=== PATIENT | male | born 1990 | race Two or more races ===

== ENCOUNTER 2020-04-20 12:50 | Outpatient (REF) | payer OTHER, SELFPAY | END 2020-04-20 12:51 | disposition home or self-care (01) | LOC: HO.LAB 12:50 | PROVIDERS: PCP Internal Medicine; Visit Provider Internal Medicine | DX: Z20.828 Contact with and (suspected) exposure to other viral communicable diseases (principal) | CPT/HCPCS: C9803; U0003 ==

== ENCOUNTER 2021-01-23 11:23 | Emergency (ER) | payer OTHER, SELFPAY ==
[2021-01-23 11:46] VITALS: BP 139/79; PULSE 97; RESP 16; TEMP 37.4; O2SAT 99; BMI 32.5
--- NOTE | 2021-01-23 11:50 | ED.URI ---
HPI - URI/Sore Throat General Chief Complaint: Upper Respiratory Symptoms Stated Complaint: sore throat Time Seen by Provider: 01/23/21 11:44 Source: patient Mode of arrival: ambulatory Limitations: no limitations History of Present Illness MD elicited complaint: fever and sore throat Onset (ago): day(s) (Four days) Consistency: constant and progressively worsening Severity: moderate Able to tolerate fluids by mouth: Yes Exacerbating factors: swallowing Relieving factors: nothing Context: other (Patient denies recent travel or sick contacts) Associated symptoms: fever, chills, myalgias and cough Treatments prior to arrival: none Related Data Previous Rx's Medication Instructions Recorded acetaminophen 300 mg-codeine 30 mg 1 tab PO Q8H PRN #10 tab 01/23/21 tablet amoxicillin 875 mg-potassium 1 tab PO BID 10 Days #20 tab 01/23/21 clavulanate 125 mg tablet (Augmentin) dexamethasone 6 mg tablet 12 mg PO ONCE 1 Days #2 tab 01/23/21 (Decadron) ibuprofen 800 mg tablet 800 mg PO Q8H PRN #14 tab 01/23/21 Allergies Allergy/AdvReac Type Severity Reaction Status Date / Time ketorolac [From TORADOL] Allergy Unknown COULDN'T Unverified 02/27/20 16:17 BREATH aspirin [ASA] Allergy Swelling Verified 01/23/21 11:46 reaction to Tramadol Allergy Unknown Difficulty Uncoded 01/23/21 11:46 Breathing Review of Systems Review of Systems: Constitutional : + Fever, + Chills, + fatigue, + Malaise ENT/Mouth : + sore throat, No runny nose Eyes: No Discharge Cardiovascular : No Chest Pain, No SOB Respiratory : + Cough, No Sputum, No Wheezing, No Smoke Exposure, No Dyspnea Gastrointestinal : No Nausea, No Vomiting, No Diarrhea Genitourinary : No irregular bleeding, No Dysuria, No Urinary Frequency, No Hematuria, No Urinary Incontinence, No Urgency, No Flank Pain, Musculoskeletal : No Myalgia Skin : No rash Neuro : No Headache Yes all other systems are reviewed and are negative PMFSH Past Medical History Attestation statement: The following information was validated with the patient. Medical History No known health problems Social History Social History Advance Directives: No Advance Directives Information Provided: Yes Physical Exam Vital Signs: Vital Signs: vital signs have been reviewed as normal and appeared to be correct. Blood pressure normal. Heart rate normal. Respiration rate normal. Temperature normal. Oxygen saturation normal. Appearance: Alert. Oriented X3. No acute distress. Head: Normal external exam. Normocephalic. Atraumatic. Eyes: PERRLA. EOMI. Conjunctiva and sclera normal. Eyelids normal. ENT: EAC normal. TM's Normal. Posterior pharynx erythematous with moderate exudate scattered bilaterally. Uvula midline. Moist mucous membranes. No trismus noted. No drooling noted. No muffled voice noted. Not consistent with peritonsillar abscess/dental abscess/pharyngeal abscess. Neck: Normal inspection. Neck supple. FROM. Bilateral cervical lymphadenopathy noted. Thyroid Normal. No meningeal signs. No neck mass noted. CVS: Normal heart rate and rhythm. Heart sound normal. Pulses normal throughout. No murmurs/rales/gallops. Respiratory: No respiratory distress. Painless inspiration. Breath sounds normal. No wheezes/rales/rhonchi noted. Chest nontender. No accessory muscle usage noted or decreased air movement noted. Abdomen: Soft and nontender. Bowel sounds normal in all 4 quadrants. No distention noted. No organomegaly noted. No visible injury noted. Back: Full range of motion noted. No rashes/lesion/induration/fluctuance or signs of infection noted. Skin: Skin warm and dry. Normal skin color. Normal skin turgor. No rashes/lesions/lacerations noted. Extremities: Extremities exhibit normal range of motion. Extremities nontender. Neuro: Oriented X 3. No motor deficit. No sensory deficit. Reflexes normal. Normal steady gait. No focal neuro deficits noted. Course Course Course Narrative: 30-year-old male presenting to the ED with a sore throat for 4 days. Denies recent travel or sick contacts. On exam patient appears to have pharyngitis. Will DC home antibiotics and symptomatic treatment instructions return if any new or worsening symptoms. Patient reports he was tested for COVID yesterday and does not need to be tested again today he was negative yesterday. Along instructions return if any new or worsening symptoms to follow up with primary care provider. Patient understands with this plan. MDM - URI/Sore Throat Medical Records Attestation: I reviewed the patient's medical records. Lab Data Attestation: I reviewed the patient's lab results. Discharge Plan Discharge Clinical Impression: Acute bacterial pharyngitis Patient Disposition: Home, Self-Care Instructions: Pharyngitis (ED) Prescriptions: New ibuprofen 800 mg tablet 800 mg PO Q8H PRN (Reason: pain) Qty: 14 RF: 0 acetaminophen-codeine 300-30 mg tablet 1 tab PO Q8H PRN (Reason: pain) Qty: 10 RF: 0 amoxicillin-pot clavulanate [Augmentin] 875-125 mg tablet 1 tab PO BID 10 Days Qty: 20 RF: 0 dexamethasone [Decadron] 6 mg tablet 12 mg PO ONCE 1 Days Qty: 2 RF: 0 Referrals: Delgado Mitchell MD [Primary Care Provider] - 2 days Stand Alone Forms: Work/School Release Print Language: Maltese
[2021-01-23 12:05] LABS: Strep A Nucleic Acid Negative (Negative)
== END 2021-01-23 12:03 | disposition home or self-care (01) ==
PROVIDERS: Physician Assistant Medical; Emergency Provider Emergency Medicine; PCP Internal Medicine
DX: J02.9 Acute pharyngitis, unspecified (principal); R50.9 Fever, unspecified; R59.1 Generalized enlarged lymph nodes
CPT/HCPCS: 36415; 87651; 99283

== ENCOUNTER 2021-10-25 10:39 | Outpatient (REF) | payer OTHER, SELFPAY ==
[2021-10-25 11:00] LABS: MANUAL DIFF FLAG NO
[2021-10-25 11:07] LABS: Basophils Percent Auto 0.3 % (0-2); Hematocrit 45.3 % (42.0-52.0); Hemoglobin 14.6 g/dl (14.0-18.0); Imm Gran Abs Auto 0.01 X10*3/uL (0.00-0.03); Imm Gran Pct Auto 0.3 % (0.0-0.4); Lymphocytes Absolute Auto 1.5 X10*3/uL (1.2-4.9); Lymphocytes Percent Auto 39.4 % (20-40); Mean Corpuscular HGB Conc 32.2 g/dl (31.0-36.0); Mean Corpuscular Hemoglobin 27.9 pg (27.0-33.0); Mean Corpuscular Volume 86.5 fL (80.0-98.0); Mean Platelet Volume 11.3 fL (9.4-12.4); Monocytes Absolute Auto 0.5 X10*3/uL (0.1-1.2); Monocytes Percent Auto 12.3 % (2-11); Neutrophils Absolute Auto 1.8 x10*3/uL (2.0-8.3); Neutrophils Percent Auto 46.7 % (45-73); Platelet Count 177 X10*3/uL (160-400); Red Blood Count 5.24 X10*6/uL (4.60-5.80); Red Cell Distribution Width 13.1 % (11.0-16.0); White Blood Count 3.8 X10*3/uL (4.8-10.8)
[2021-10-25 11:39] LABS: Alanine Aminotransferase 22 U/L (0-40); Albumin Level 4.6 g/dL (3.5-5.0); Alkaline Phosphatase 62 U/L (39-117); Anion Gap 12 (12-20); Aspartate Amino Transferase 17 U/L (5-37); Bilirubin Total 0.7 mg/dL (0.0-1.0); Blood Urea Nitrogen 14 mg/dL (9-16); C Reactive Protein 0.13 mg/dL (< or = 0.50); Calcium 10.1 mg/dL (8.4-10.2); Carbon Dioxide 28 mmol/L (22-29); Chloride 103 mmol/L (96-108); Cholesterol 215 mg/dL; Estimated Glomerular Filt Rate > 60; Glucose Random 97 mg/dL (60-115); Potassium 4.5 mmol/L (3.3-5.1); Sodium 138 mmol/L (135-145); Total Protein 8.1 g/dL (6.5-8.0)
[2021-10-25 11:54] LABS: Free T4 (Free Thyroxine) 1.01 ng/dL (0.71-1.85); Thyroid Stimulating Hormone 0.85 uIU/mL (0.32-4.0)
[2021-10-25 12:02] LABS: Vitamin B12 410 pg/mL (200-900)
[2021-10-28 08:55] LABS: TS Negative Control Passed; TS Panel A 0; TS Panel B 0; TS Positive Control Passed; TSpotTB Negative (Negative)
[2021-10-29 20:07] LABS: Testosterone, Free 142.5 pg/mL (35.0-155.0); Testosterone, Total 742 ng/dL (250-1100)
== END 2021-10-25 10:40 | disposition home or self-care (01) ==
LOC: HO.LAB 10:39
PROVIDERS: PCP Internal Medicine; Visit Provider Internal Medicine
DX: Z11.1 Encounter for screening for respiratory tuberculosis (principal); R51.9 Headache, unspecified; R63.5 Abnormal weight gain; G62.9 Polyneuropathy, unspecified; R61 Generalized hyperhidrosis
CPT/HCPCS: 36415; 80053; 82465; 82607; 84402; 84403; 84439; 84443; 85025; 86140; 86481

== ENCOUNTER 2021-10-28 10:43 | Outpatient (REF) | payer OTHER, SELFPAY ==
--- NOTE | ~2021-10-28 | CT_ITS ---
EXAMINATION: CT HEAD WITHOUT CONTRAST CLINICAL INFORMATION: Headache COMPARISON: None TECHNIQUE: Contiguous axial imaging was performed from the skull base to vertex without intravenous administration of contrast. This CT examination was performed using dose optimization techniques as appropriate, variously including the following: *Automated exposure control *Adjustment of mA and/or kV according to patient size (this includes techniques or standardized protocols for targeted exams where dose is matched to indication/reason for exam; i.e. extremities or head) *Use of iterative reconstruction technique DLP: 769 mGy-cm FINDINGS: There is no evidence of acute intracranial hemorrhage or territorial infarction. No abnormal mass effect or midline shift is seen. Ward to white matter differentiation is well preserved. No extra-axial fluid collections are identified. The ventricles are normal in size. There is no abnormal attenuation within the brain parenchyma. The osseous structures and soft tissues are normal. The mastoid air cells and visualized portions of the paranasal sinuses are well aerated. CT/CT head/brain wo con IMPRESSION: No acute intracranial process seen.
== END 2021-10-28 10:44 | disposition home or self-care (01) ==
LOC: HO.CT 10:43
PROVIDERS: PCP Internal Medicine; Visit Provider Internal Medicine
DX: R51.9 Headache, unspecified (principal); L74.9 Eccrine sweat disorder, unspecified; G60.9 Hereditary and idiopathic neuropathy, unspecified
CPT/HCPCS: 70450

== ENCOUNTER 2022-02-05 16:48 | Emergency (ER) | payer OTHER, SELFPAY ==
--- NOTE | ~2022-02-05 | XR_ITS ---
EXAMINATION: XR chest 2V CLINICAL INFORMATION: Reason for Exam sob, cough, positive COVID COMPARISON: No prior chest x-ray available in our system for comparison at the time of this dictation. TECHNIQUE: XR chest 2V Lungs and Mary: Both lungs are clear. Pleura: Normal. Costophrenic angles are sharp. No pneumothorax. Heart: The heart is normal in size. Mediastinum: The mediastinum is within normal limits.. Bones: Skeletal structures included are normal for patient's age. XR/XR chest 2V IMPRESSION: Normal chest x-ray.
[2022-02-05 17:11] VITALS: BP 142/90; PULSE 98; RESP 20; TEMP 37; O2SAT 99; BMI 32.5
[2022-02-05 17:38] LABS: COVID-19 Test Positive (Negative)
--- NOTE | 2022-02-05 18:27 | ED.URI ---
HPI - URI/Sore Throat General Chief Complaint: Upper Respiratory Symptoms Stated Complaint: SOB/Body aches/ +Covid Time Seen by Provider: 02/05/22 17:37 Source: patient Mode of arrival: ambulatory Limitations: no limitations History of Present Illness HPI Narrative: Patient presents emergency department for evaluation of upper respiratory symptoms. Reporting cough, intermittent shortness of breath, body aches, fevers, vomiting and diarrhea x2 days. Had at home COVID-19 test which was positive. States he has received a single dose of COVID-19 vaccination, does not recall the date. Related Data Previous Rx's Medication Instructions Recorded acetaminophen 300 mg-codeine 30 mg 1 tab PO Q6H PRN pain #10 tabs 01/23/21 tablet acetaminophen 300 mg-codeine 30 mg 1 tab PO Q8H PRN pain #10 tabs 01/23/21 tablet amoxicillin 875 mg-potassium 1 tab PO BID 10 days #20 tabs 01/23/21 clavulanate 125 mg tablet (Augmentin) dexamethasone 6 mg tablet 12 mg PO ONCE Inflammation 1 day 01/23/21 (Decadron) #2 tabs ibuprofen 800 mg tablet 800 mg PO Q8H PRN pain #14 tabs 01/23/21 Allergies Allergy/AdvReac Type Severity Reaction Status Date / Time ketorolac [From TORADOL] Allergy Unknown COULDN'T Verified 02/05/22 17:14 BREATH aspirin [ASA] Allergy Swelling Verified 02/05/22 17:14 reaction to Tramadol Allergy Unknown Difficulty Uncoded 01/23/21 11:46 Breathing Review of Systems Review of Systems: Constitutional: Positive fever. Positive chills. No weakness. Positive fatigue. ENT/ Mouth: No Ear Pain, positive Nasal Congestion, positive sore throat, No Rhinorrhea, No Swallowing Difficulty Skin: No rash or itching. Cardiovascular: No chest pain. No palpitations. Respiratory: Positive shortness of breath. Positive cough. No sputum production. Gastrointestinal: No nausea. No vomiting. No diarrhea. No abdominal pain. Genitourinary: No burning micturition. No urinary frequency. Neurologic: No headache. No dizziness. No syncope. No numbness or tingling in the extremities. Musculoskeletal: No muscle pain. No back pain. No joint pain or stiffness. Yes all other systems are reviewed and are negative [facility] Past Medical History Attestation statement: The following information was validated with the patient. Source: old records reviewed Medical History No known health problems Social History Social History Advance Directives: No Advance Directives Information Provided: No Physical Exam Vital Signs: Vital Signs: Last Vital Signs Temp 98.6 F 02/05/22 17:11 Pulse 98 02/05/22 17:11 Resp 20 02/05/22 17:11 BP 142/90 H 02/05/22 17:11 Pulse Ox 99 02/05/22 17:11 O2 Del Method 02/05/22 17:11 BMI result Body Mass Index 32.5 Vital signs have been reviewed as normal and appeared to be correct. Blood pressure normal.? Heart rate normal.? Respiration rate normal. Temperature normal.? Oxygen saturation normal. Appearance: Alert.?Oriented to person, place and time. No acute distress.?Normal affect. Eyes: Pupils equal, round and reactive to light.? ENT: TM normal bilaterally. Pharynx normal.?? Neck: Normal inspection.? Neck supple.??No cervical adenopathy CVS: Heart sounds normal. Normal heart rate and rhythm.? Pulses normal.?? Respiratory: No respiratory distress.? Lung sounds clear to auscultation bilaterally?? Abdomen: Soft and non-tender. Normoactive bowel sounds. Skin: Skin warm and dry.? Normal skin color.? ? Extremities: No lower extremity edema.? Neuro: Moves all extremities spontaneously. Sensation intact bilaterally. No motor deficits. Ambulates with normal steady gait. Course Course Course Narrative: Patient is a 31-year-old male with No significant past medical history, presenting for evaluation of upper respiratory symptoms. COVID-19 testing Was positive. At this time history and physical exam not consistent with ACS/PE/pneumonia. Well-appearing, nontoxic, afebrile, no tachycardia or tachypnea/hypoxia. Ambulatory room air trial without hypoxia, tachypnea, or tachycardia Speaking clear full sentences, ambulatory with steady gait. Discussed conservative treatment including rest, hydration, Tylenol/ibuprofen as needed for fever and body aches, saline nasal spray, humidifier, [id number] cold medication. Advised to follow-up with primary care provider as needed, discussed reasons to return back to the emergency department. All questions were answered. Patient discharged home in stable condition. Provided with a return to work/school note. Soonest return date/end isolation date of 02/08/2022, advised that he needs to be without fever for 24 hour period without the use of Tylenol or ibuprofen, and with improvement in his symptoms. No past medical history that would make him a candidate for oral treatment/monoclonal antibodies MDM - URI/Sore Throat Medical Records Attestation: I reviewed the patient's medical records. Lab Data Attestation: I reviewed the patient's lab results. Labs: Lab Results 02/05/22 Range/Units 17:16 COVID-19 (ANDREAS) Positive A (Negative) COVID-19 Clin Com See Note Imaging Data Chest x-ray: Radiologist's impression: XR/XR chest 2V IMPRESSION: Normal chest x-ray. Discharge Plan Discharge Clinical Impression: COVID-19 Patient Disposition: Home, Self-Care Additional Instructions: You tested positive for COVID-19. Per CDC guidelines you should socially distance/isolate yourself for at least 5 days since her symptom onset. This means the Soonest you may return to to work or end isolation Is 02/09/2020. However, in order to return to work or and your social distancing your symptoms need to be improving, and you need to be without a fever for at least 24 hours without the use of Tylenol or ibuprofen. Be sure to rest, stay well hydrated drinking plenty of fluids, eat small frequent meals. Tylenol/ibuprofen can be used as needed for fever/pain. [id number] cold medications may be helpful as well for symptoms. Saline nasal spray, humidifier may be helpful for nasal congestion. You may return to the emergency department with any new or worsening symptoms or concerns, Such as high fevers not responding to Tylenol or ibuprofen, difficulty breathing, chest pain, confusion. Follow-up with your primary care provider as needed. Prescriptions: No Action ibuprofen 800 mg tablet 800 mg PO Q8H PRN (Reason: pain) Qty: 14 0RF acetaminophen-codeine 300-30 mg tablet 1 tab PO Q8H PRN (Reason: pain) Qty: 10 0RF amoxicillin-pot clavulanate [Augmentin] 875-125 mg tablet 1 tab PO BID 10 Days Qty: 20 0RF dexamethasone [Decadron] 6 mg tablet 12 mg PO ONCE 1 Days Qty: 2 0RF Rx Instructions: Take two tablets today does not need to repeat. acetaminophen-codeine 300-30 mg tablet 1 tab PO Q6H PRN (Reason: pain) Qty: 10 0RF Rx Instructions: Narcotic, no driving for 6 hours after taking this medication Referrals: Delgado Mitchell MD [Primary Care Provider] - Stand Alone Forms: Work/School Release
== END 2022-02-05 19:38 | disposition home or self-care (01) ==
PROVIDERS: Emergency Provider Emergency Medicine; PCP Internal Medicine
DX: U07.1 COVID-19 (principal)
CPT/HCPCS: 71046; 87635; 99282; 99283

== ENCOUNTER 2023-02-26 07:35 | Emergency (ER) | payer OTHER, SELFPAY ==
--- NOTE | ~2023-02-26 | XR_ITS ---
EXAMINATION: XR CHEST CLINICAL INFORMATION: Chest pain COMPARISON: X-ray 02/05/2022 TECHNIQUE: 2 views of the chest were obtained. FINDINGS: The cardiomediastinal silhouette is within normal limits. The lungs are well expanded. There is no focal consolidation, edema, or effusion. No pneumothorax. No acute osseous abnormality. XR/XR chest 2V IMPRESSION: No acute pulmonary finding seen.
--- NOTE | 2023-02-26 07:37 | ECG_ITS ---
Test Reason : CP Blood Pressure : / mmHG Vent. Rate : 118 BPM Atrial Rate : 118 BPM P-R Int : 170 ms QRS Dur : 094 ms QT Int : 316 ms P-R-T Axes : 026 002 025 degrees QTc Int : 442 ms Sinus tachycardia Cannot rule out Inferior infarct , age undetermined Abnormal ECG No previous ECGs available Referred By: Enid Ochoa Electronically Signed By:SARAN GRIMM
[2023-02-26 07:41] VITALS: BP 143/85; PULSE 116; RESP 26; TEMP 36.8; O2SAT 98; BMI 30.7
--- NOTE | 2023-02-26 07:53 | ED_ITS ---
HPI - Chest Pain General Chief Complaint: Chest Pain Stated Complaint: heart racing going fast Time Seen by Provider: 02/26/23 07:39 Source: patient Mode of arrival: ambulatory History of Present Illness HPI narrative: 32-year-old male who reports extensive drinking over the weekend and has been having anterior chest wall discomfort, reproducible on palpation, no nausea or vomiting or abdominal pain, no fever but states he has been having chills and denies any cough or sore throat. Patient states that he feels he is having palpitations every time he stands up and walks, he feels better laying back then he does sitting up. Related Data Previous Rx's Medication Instructions Recorded acetaminophen 300 mg-codeine 30 mg 1 tab PO Q6H PRN pain #10 tabs 01/23/21 tablet acetaminophen 300 mg-codeine 30 mg 1 tab PO Q8H PRN pain #10 tabs 01/23/21 tablet amoxicillin 875 mg-potassium 1 tab PO BID 10 days #20 tabs 01/23/21 clavulanate 125 mg tablet (Augmentin) dexamethasone 6 mg tablet 12 mg (2 x 6 mg) PO ONCE 01/23/21 (Decadron) Inflammation 1 day #2 tabs ibuprofen 800 mg tablet 800 mg PO Q8H PRN pain #14 tabs 01/23/21 Allergies Allergy/AdvReac Type Severity Reaction Status Date / Time ketorolac [From TORADOL] Allergy Unknown COULDN'T Verified 02/05/22 17:14 BREATH aspirin [ASA] Allergy Swelling Verified 02/05/22 17:14 reaction to Tramadol Allergy Unknown Difficulty Uncoded 01/23/21 11:46 Breathing Review of Systems 2 Review of Systems: Pertinent positives and negatives as stated in HPI [facility] Past Medical History Source: nursing notes reviewed Medical History No known health problems Social History Social History Smoked in Last 30 Days: No Substance Use Type: Marijuana Advance Directives: No Advance Directives Information Provided: Yes Physical Exam 2 Vital Signs: Vital Signs: Last Vital Signs Temp 98.4 F 02/26/23 11:19 Pulse 101 H 02/26/23 11:19 Resp 18 02/26/23 11:19 BP 139/85 02/26/23 11:19 Pulse Ox 97 02/26/23 11:19 O2 Del Method Room Air 02/26/23 11:19 BMI result Body Mass Index 30.7 VITAL SIGNS: Reviewed. GENERAL: Well developed, well nourished, in no acute distress. HEAD: Normocephalic/atraumatic EYES: PERRLA, EOMI EARS: Ext canals without abnormality, TMs non-bulging and non-erythematous NOSE: Nares patent bilateral OROPHARYNX: no oral lesions noted, posterior pharynx clear and non-erythematous without noted tonsillar enlargement/erythema/exudates NECK: Supple, no adenopathy LUNGS: Normal breath sounds. No adventitious sounds or accessory muscle use. SpO2<98>; CHEST: Reproducible chest pain on palpation across the anterior chest CARDIOVASCULAR: Regular rate and rhythm without noted murmurs, no JVD or lower extremity edema. ABDOMEN: Soft, non-tender, non-distended with bowel sounds. MUSCULOSKELETAL: No tenderness, deformities, or effusions noted on gross inspection. EXTREMITIES: No cyanosis, clubbing or edema. SKIN: Inspection of the skin reveals no rashes NEUROLOGIC: Alert and oriented x 4. Strength and sensation to light touch were grossly intact x 4. Medications Administered Discontinued Medications Generic Name Dose Route Start Last Admin Trade Name Freq PRN Reason Stop Dose Admin Acetaminophen 975 mg 02/26/23 08:47 02/26/23 08:52 Acetaminophen 325 Mg Tablet PO 02/26/23 08:48 975 mg ONCE ONE Administration Hydroxyzine HCl 25 mg 02/26/23 09:58 02/26/23 10:08 Hydroxyzine Hcl 25 Mg Tablet PO 02/26/23 09:59 25 mg ONCE ONE Administration Sodium Chloride 1,000 mls @ 999 mls/hr 02/26/23 09:00 02/26/23 10:09 Ns IV 02/26/23 10:00 Infused .Q1H1M ALEJANDRO Infusion Lidocaine/Diphenhydr/Alum/Mg/Simeth 10 ml 02/26/23 08:47 02/26/23 08:52 Mag&Al/Sim/Diphenhyd/Lidocaine 10 Ml Oral.Susp PO 02/26/23 08:48 10 ml ONCE ONE Administration Protocol Medical Decision Making Medical Decision Making MDM Narrative: 32-year-old male with history and clinical presentation, DDX: Lower clinical suspicion for pericarditis given the lack of positional association, patient is noted to be tachycardic but suspect this may be more secondary to hypovolemia from alcohol intake as opposed to primary ACS but will rule out with troponin and also evaluate with a D-dimer and a two view chest x-ray for lower clinical suspicion of pneumothorax. He is not describing it as burning in nature so lower clinical suspicion for acid reflux. 0800: I discussed the case briefly with Cardiology given that there or questionable ST elevations in lead 2 and AVF, recommendations are to evaluate troponin and if negative repeat the troponin in 3 hours. I will also repeat EKG and of course, allergic to aspirin. I reviewed all investigations, orthostatics are negative, hematologic indices are without leukocytosis or thrombocytopenia. Patient does have a normocytic anemia without complaints or evidence of acute bleeding. D-dimer is undetectable and otherwise coagulation studies are negative. Chemistry indices are grossly within normal limits without ELVIA and no evidence of electrolyte or liver enzyme abnormalities. Initial troponin is undetectable. Troponin will be repeated at 11:00 hours. Patient was provided with Tylenol and GI cocktail. 1 L of IV fluids is being administered. Of note, patient was drinking mixed drinks with red bull last night which is likely a contributing factor for his current symptoms. Chest x-ray without infiltrate and otherwise my interpretation is in agreement with radiology's impression. UDS positive for endorsed use marijuana. Patient did receive hydroxyzine for reported anxiety. Will proceed with 2nd troponin and EKG. 1108: I have updated Dr. Garza who recommends that if 2nd troponin is undetectable, okay to discharge but if elevated at all patient will be admitted. 1102: EKG still demonstrate elevation in Lead II, aVF of unclear significance. 1146: Trop #2 undetetctable and cardiology agrees with discharge and will reach out for appointment. All results and findings discussed with the patient at bedside and discharged with presumptive caffeine overindulgence. Differential Diagnosis Differential Diagnoses: The differential diagnosis associated with the presentation includes Please see the discussion above Admission/Observation Consideration of admission/observation: Escalation of care including admission/observation considered Please see the discussion above Consult Healthcare Provider Management of the patient was discussed with: Electrotype Finisher Please see the discussion above Lab Data MDM Lab Attestation statement: I reviewed the patient's lab results. Please see the discussion above 02/26/23 08:01 02/26/23 08:01 Labs: Lab Results 02/26/23 02/26/23 02/26/23 Range/Units 08:01 10:19 11:15 WBC 10.3 (4.8-10.8) X10*3/uL RBC 4.66 (4.60-5.80) X10*6/uL Hgb 13.0 L (14.0-18.0) g/dl Hct 39.0 L (42.0-52.0) % MCV 83.7 (80.0-98.0) fL MCH 27.9 (27.0-33.0) pg MCHC 33.3 (31.0-36.0) g/dl RDW 12.3 (11.0-16.0) % Plt Count 172 (160-400) X10*3/uL MPV 11.3 (9.4-12.4) fL Immature Gran % (Auto) 0.3 (0.0-0.4) % Neut % (Auto) 80.6 H (45-73) % Lymph % (Auto) 9.3 L (20-40) % Dixon % (Auto) 9.6 (2-11) % Eos % (Auto) 0.1 (0-4) % Baso % (Auto) 0.1 (0-2) % Lymph # (Auto) 1.0 L (1.2-4.9) X10*3/uL Dixon # (Auto) 1.0 (0.1-1.2) X10*3/uL Eos # (Auto) 0.0 (0.0-0.4) X10*3/uL Baso # (Auto) 0.0 (0.0-0.2) X10*3/uL Abs Immat Gran (auto) 0.03 (0.00-0.03) X10*3/uL Absolute Neuts (auto) 8.3 (2.0-8.3) x10*3/uL Absolute Nucleated RBC 0.000 (0.0-0.012) X10*3/uL Nucleated RBC % (auto) 0.0 (0.0-0.2) /100WBC PT 12.0 (11.1-13.3) SEC INR 1.0 (0.9-1.1) D-Dimer High Sensitivty < 150 NG/ML Sodium 137 (135-145) mmol/L Potassium 3.5 D (3.3-5.1) mmol/L Chloride 104 (96-108) mmol/L Carbon Dioxide 24 (22-29) mmol/L Anion Gap 13 (12-20) BUN 10 (9-16) mg/dL Creatinine 1.10 (0.5-1.4) mg/dL Estim Creat Clear Calc 105.0 Estimated GFR > 60 Random Glucose 112 (60-115) mg/dL Calcium 9.4 D (8.4-10.2) mg/dL Total Bilirubin 0.9 (0.0-1.0) mg/dL AST 16 (5-37) U/L ALT 14 (0-40) U/L Alkaline Phosphatase 63 (39-117) U/L Troponin I High Sens < 2.7 < 2.7 (<3.5-35.0) ng/L Total Protein 7.6 (6.5-8.0) g/dL Albumin 4.3 (3.5-5.0) g/dL Lipase 20 (8-78) U/L Urine Opiates Screen Not Detected (Not Detect) Urine Fentanyl Screen Not Detected (Not Detect) Ur Barbiturates Screen Not Detected (Not Detect) Ur Phencyclidine Scrn Not Detected (Not Detect) Ur Amphetamines Screen Not Detected (Not Detect) U Benzodiazepines Scrn Not Detected (Not Detect) Urine Cocaine Screen Not Detected (Not Detect) U Marijuana (THC) Screen POSITIVE H (Not Detect) Independent Interpretation I performed an independent interpretation of an: EKG Interpretation: Sinus tachycardia, HR -118, ?Lead II/aVF elevations, NM/QRS/QTC is within normal limits. no EKG for comparison. Radiology Impression Discussion of test interpretation with radiology: I have reviewed the radiologist's reading. Radiologist Impression: Please see the discussion above External Record Review External record reviewed: Outpatient record, Prior outpatient labs and Prior outpatient radiology Critical Care Time Critical Care Time Critical Care Time: Yes Total Critical Care Time: 30 Attestation: I personally attest to this time spent taking care of the patient. Discharge Plan Discharge Clinical Impression: Accidental caffeine overdose, Atypical chest pain, Anterior chest wall pain, Anxiety Patient Disposition: Home, Self-Care Instructions: Anxiety (ED), Caffeine Use (ED), Chest Wall Pain (ED) Additional Instructions: 1. Resume all home medications as prescribed. 2. Recommend follow-up with your primary care doctor. Return to the ER for any worsening symptoms. Prescriptions: No Action ibuprofen 800 mg tablet 800 mg PO Q8H PRN (Reason: pain) Qty: 14 0RF acetaminophen-codeine 300-30 mg tablet 1 tab PO Q8H PRN (Reason: pain) Qty: 10 0RF amoxicillin-pot clavulanate [Augmentin] 875-125 mg tablet 1 tab PO BID 10 Days Qty: 20 0RF dexamethasone [Decadron] 6 mg tablet 12 mg PO ONCE 1 Days Qty: 2 0RF Rx Instructions: Take two tablets today does not need to repeat. acetaminophen-codeine 300-30 mg tablet 1 tab PO Q6H PRN (Reason: pain) Qty: 10 0RF Rx Instructions: Narcotic, no driving for 6 hours after taking this medication Referrals: Delgado Mitchell MD [Primary Care Provider] - Chester Garza MD [Physician] -
--- NOTE | 2023-02-26 08:03 | PC.NURSE ---
alert and oriented, respirations even and unlabored. IV established, labs drawn and sent. Placed on manager operations, sinus tach. Awaiting xrays
[2023-02-26 08:06] LABS: MANUAL DIFF FLAG NO
[2023-02-26 08:09] LABS: Basophils Percent Auto 0.1 % (0-2); Eosinophils Percent Auto 0.1 % (0-4); Imm Gran Abs Auto 0.03 X10*3/uL (0.00-0.03); Imm Gran Pct Auto 0.3 % (0.0-0.4); Lymphocytes Percent Auto 9.3 % (20-40); Mean Corpuscular HGB Conc 33.3 g/dl (31.0-36.0); Mean Corpuscular Hemoglobin 27.9 pg (27.0-33.0); Mean Corpuscular Volume 83.7 fL (80.0-98.0); Mean Platelet Volume 11.3 fL (9.4-12.4); Monocytes Percent Auto 9.6 % (2-11); Neutrophils Absolute Auto 8.3 x10*3/uL (2.0-8.3); Neutrophils Percent Auto 80.6 % (45-73); Platelet Count 172 X10*3/uL (160-400); Red Blood Count 4.66 X10*6/uL (4.60-5.80); Red Cell Distribution Width 12.3 % (11.0-16.0); White Blood Count 10.3 X10*3/uL (4.8-10.8)
[2023-02-26 08:11] VITALS: BP 139/83; PULSE 108
[2023-02-26 08:13] VITALS: BP 131/84; PULSE 115
[2023-02-26 08:14] VITALS: BP 151/81; PULSE 117
[2023-02-26 08:24] LABS: Alanine Aminotransferase 14 U/L (0-40); Albumin Level 4.3 g/dL (3.5-5.0); Alkaline Phosphatase 63 U/L (39-117); Anion Gap 13 (12-20); Aspartate Amino Transferase 16 U/L (5-37); Bilirubin Total 0.9 mg/dL (0.0-1.0); Blood Urea Nitrogen 10 mg/dL (9-16); Calcium 9.4 mg/dL (8.4-10.2); Carbon Dioxide 24 mmol/L (22-29); Chloride 104 mmol/L (96-108); Estimated Glomerular Filt Rate > 60; Glucose Random 112 mg/dL (60-115); Lipase 20 U/L (8-78); Potassium 3.5 mmol/L (3.3-5.1); Sodium 137 mmol/L (135-145); Total Protein 7.6 g/dL (6.5-8.0)
[2023-02-26 08:33] LABS: Troponin-I High Sensitivity < 2.7 ng/L (<3.5-35.0)
[2023-02-26] MEDS: Mag&Al/Sim/Diphenhyd/Lidocaine 10 ML ORAL.SUSP PO (08:52)
[2023-02-26] MEDS: Acetaminophen 325 MG TABLET 975 MG PO (08:52)
[2023-02-26] MEDS: 0.9 % Sodium Chloride 1,000 ML 999 ML IV (08:52)
[2023-02-26 09:09] LABS: D Dimer High Sensitivity < 150 NG/ML
[2023-02-26] MEDS: hydrOXYzine HCL 25 MG TABLET PO (10:08)
--- NOTE | 2023-02-26 10:10 | PC.NURSE ---
plan for repeat troponin at 1100. pt removed himself from the monitor, stating he is having anxiety at this time. medicated per the MAR for anxiety. ambulating to the bathroom for urine sample. explained that pt needs to be on reed or wind instrument repairer so we can monitor his heart rate
[2023-02-26 10:18] VITALS: PULSE 102; RESP 16; O2SAT 97
[2023-02-26 10:35] LABS: Amphetamine Screen Urine Not Detected (Not Detect); Barbiturates, Urine Not Detected (Not Detect); Benzodiazepines Screen Urine Not Detected (Not Detect); Cannabinoid Screen Urine POSITIVE (Not Detect); Cocaine Screen Urine Not Detected (Not Detect); Fentanyl, urine Not Detected (Not Detect); Opiate Screen Urine Not Detected (Not Detect); Phencyclidine Screen Urine Not Detected (Not Detect)
--- NOTE | 2023-02-26 10:48 | ECG_ITS ---
Test Reason : CHEST PAIN Blood Pressure : / mmHG Vent. Rate : 106 BPM Atrial Rate : 106 BPM P-R Int : 162 ms QRS Dur : 092 ms QT Int : 334 ms P-R-T Axes : 024 001 019 degrees QTc Int : 443 ms Sinus tachycardia with Premature supraventricular complexes Early repolarization Otherwise normal ECG When compared with ECG of 26-FEB-2023 07:46, Premature supraventricular complexes are now Present Minimal criteria for Inferior infarct are no longer Present Referred By: Enid Ochoa Electronically Signed By:SARAN GRIMM
--- NOTE | 2023-02-26 11:18 | PC.NURSE ---
states he is feeling better than he was this morning but still reporting palpitations. repeat troponin obtained.
[2023-02-26 11:19] VITALS: BP 139/85; PULSE 101; RESP 18; TEMP 36.9; O2SAT 97
[2023-02-26 11:40] LABS: Troponin-I High Sensitivity < 2.7 ng/L (<3.5-35.0)
== END 2023-02-26 12:04 | disposition home or self-care (01) ==
PROVIDERS: Emergency Provider Student in an Organized Health Care Education/Training Program; PCP Internal Medicine
DX: T43.611A Poisoning by caffeine, accidental (unintentional), initial encounter (principal); Y92.9 Unspecified place or not applicable; R07.89 Other chest pain; F41.1 Generalized anxiety disorder; F43.0 Acute stress reaction; F12.90 Cannabis use, unspecified, uncomplicated; Z79.899 Other long term (current) drug therapy
CPT/HCPCS: 36415; 71046; 80053; 80307; 83690; 84484; 85025; 85379; 85610; 93005; 99285

== ENCOUNTER 2023-07-19 13:50 | Outpatient (AMB) | payer OTHER, SELFPAY ==
--- NOTE | 2023-07-19 13:52 | A.OFFVIS_ITS ---
Intake Vital Signs 07/19/23 13:54 Height 5 ft 8 in Weight 200 lb 9.93 oz BMI 30.5 BP 120/72 Blood Pressure Location Lt brachial Position Sitting Pulse 97 Intake Visit Reasons: NPV/Croke Intake Note: NPV Psych Tech Required: No Accompanied by: Self / Same As Patient Allergies ketorolac [From TORADOL] Allergy (Unknown, Verified 07/19/23 13:57) COULDN'T BREATH aspirin [ASA] Allergy (Verified 07/19/23 13:57) Swelling reaction to Tramadol Allergy (Unknown, Uncoded 07/19/23 13:57) Difficulty Breathing Medication List - Last Reconciled 07/19/23 by Chester Garza MD bupropion HCl 100 mg PO QAM colchicine 0.6 mg PO BID ibuprofen 400 mg PO Q12H pantoprazole 40 mg PO DAILY HPI HPI Comments History of Present Illness Details Emiliano is here for consultation regarding pericardial effusion. It seems that he has been having symptoms of chest pain going back to almost March or so. Then things got worse and he actually got admitted to [facility] last month. At that time, he had several complaints apparently including pleuritic type chest pains, shortness of breath and also some sensations of racing heart. Then underwent a CT scan and that showed a large pericardial effusion. Also seen on echocardiogram. Subsequently, he went for pericardiocentesis. About 720 mL of serosanguineous fluid was removed. After that, he has been put on a combination of colchicine and ibuprofen. He is better but not back to normal yet. When he was taking colchicine twice a day, he was having diarrhea and hence he is taking once a day. However, he is having more chest pain type symptoms again. Prior to this, no major medical issues and he is generally very healthy. No known malignancy or autoimmune disease. FOR[facility]LY [facility], [facility] Medical History (Updated 07/19/23 @ 14:08 by Chester Garza MD) Pericardial effusion No known health problems Surgical History (Updated 07/19/23 @ 13:59 by Sherley Wilson) No pertinent past surgical history Family History (Updated 07/19/23 @ 14:00 by Sherley Wilson) Mother No problems noted. Father No problems noted. Social History Substance Use Type: Marijuana Review of Systems Const Denies weakness Eyes Denies loss of vision ENT Denies dizziness Card Reports chest pain, Denies chest pain with activity, Denies syncope, Denies rapid heart rate, Denies pedal edema, Denies edema, Denies leg edema, Denies lightheadedness, Reports palpitations, Reports dyspnea, Denies dyspnea on exertion and Denies orthopnea Resp Denies cough, Reports dyspnea, Denies dyspnea on exertion and Denies wheezing GI Denies hematochezia and Denies change in stool character Denies hematuria, Denies dysuria and Denies urinary frequency Musc Denies abnormal gait, Denies muscle cramps, Denies muscle weakness, Denies numbness, Denies radiating pain into limb and Denies tingling Skin/Breast Denies nail changes and Denies rash Neuro Denies Abnormal speech present, Denies abnormal gait, Denies dizziness, Denies syncope, Denies loss of vision, Denies memory loss, Denies numbness, Denies tingling and Denies weakness Psych Denies depression and Denies memory loss Endo Reports palpitations Aller/Immun Denies wheezing Physical Exam Vital Signs: Last Vital Signs Pulse 97 07/19/23 13:54 BP 120/72 07/19/23 13:54 BMI result Body Mass Index 30.5 Const General: comfortable and no acute distress Orientation/consciousness: patient oriented x3 HEENT Other: Unremarkable Head: Yes normal to inspection Neck Neck: Yes normal visual inspection Chest Chest palpation & inspection: normal inspection of the chest Resp Auscultation: clear to auscultation bilaterally Cardio Palpation: normal PMI Heart sounds: S1 normal heart sound present, S2 normal heart sound present, no gallops, no murmurs and no rubs GI Palpation (GI): Soft to palpation Back/Spine/Pelvis Other: unremarkable Skin General skin exam: no rashes or lesions noted Neuro General: patient oriented x3 Speech: No Abnormal speech present Extrem General: Yes normal to inspection Psych Mental Status: mental status grossly normal Assessment & Plan Assessment & Plan (1) Pericardial effusion: Code(s): I31.39 - Other pericardial effusion (noninflammatory) Plan He EKG from February shown sinus tachycardia with mild, diffuse ST elevation suggesting pericarditis pattern. [facility] records were reviewed. CT scan had reported a large, mildly complex pericardial effusion. Echocardiogram then with a large circumferential pericardial effusion but no evidence of tamponade physiology. Pericardial centesis removal of 720 mL of serosanguineous fluid. Etiology is not clear. It seems that his CRP and ESR were high. That is just a nonspecific finding suggesting underlying inflammation. TSH is within normal limits. Viral serologies including COVID and influenza, RSV were negative. Unremarkable troponin. The fluid itself was cloudy and positive for white cells, red blood cells. Negative for malignancy. Negative cultures. Labs did not show any significant findings. Renal function was okay. Liver function was also within normal limits. LDH was high. Overall, pericardial effusion of uncertain etiology. Status post pericardiocentesis. We will repeat another echocardiogram to ensure there are no significant residual findings. For medications, as he is not tolerating colchicine well, we can increase the ibuprofen to 800 mg t.i.d. but he can try b.i.d. if the pain improves. He is also on some PPIs. If he fails above, may need some steroids. There is a description of allergy to aspirin but he is tolerating ibuprofen well. Otherwise, we will plan on seeing him back in a few weeks' time. Total time spent including review of all the [facility] documentation, counseling, documentation, coordination care-60 minutes. Orders: Orders CA echo transthoracic complete Today I31.39 - Other pericardial effusion (noninflammatory) Medications: New ibuprofen 800 mg PO TID 270 tabs 0RF 90 days I31.39 - Other pericardial effusion (noninflammatory) Discontinued dexamethasone (Decadron) Take two tablets today does not need to repeat. Discontinued Reason: Patient no longer taking 12 mg PO ONCE Inflammation Coding Level of Care Code New Pt Level 5 (35243) Diagnoses Pericardial effusion I31.39
[2023-07-19 13:54] VITALS: BP 120/72; PULSE 97; BMI 30.5
== END 2023-07-19 14:34 | disposition home or self-care (01) ==
PROVIDERS: PCP Internal Medicine; Visit Provider Internal Medicine
DX: I31.39 Other pericardial effusion (noninflammatory) (principal)
CPT/HCPCS: 93306; 99205

== ENCOUNTER → 2023-07-19 13:50 | Outpatient (BNVA) | payer OTHER, SELFPAY | PROVIDERS: PCP Internal Medicine; Visit Provider Internal Medicine ==

== ENCOUNTER → 2023-07-19 14:40 | Outpatient (REF) | payer OTHER, SELFPAY ==
--- NOTE | 2023-07-19 14:45 | CA_ITS ---
Transthoracic Echocardiogram Patient (Last, First, Middle): Emiliano Talavera, Gender: Male Date of : 1990 Age: 32 Procedure Date: 07/19/2023 Procedure Type: Transthoracic Echocardiogram Location: OP Height: 172.72 cm Weight: 89.36 kg BSA: 2.03 m2 Heart Rate: bpm BP: 124 / 80 mmHg Customer Support Executive: RONALD Referring MD: Chester Garza MD Symptoms: I31.39 - Other pericardial effusion (noninflammatory) Study Quality: Adequate ECG Rhythm: Sinus Conclusions: - The left ventricular systolic function is normal. The calculated ejection fraction is 59% by biplane method. - No obvious valvular pathology seen on this study. - No significant pericardial effusion noted. Findings Left Ventricle Normal left ventricular cavity size. There is mildly increased left ventricular wall thickness. The left ventricular systolic function is normal. The calculated ejection fraction is 59% by biplane method. There is no evidence of regional wall motion abnormalities. Diastolic function is normal for age. LV peak GLS -18.5%. Right Ventricle Normal right ventricular cavity size. There is low normal right ventricular systolic function. Atria Both atria are normal in size. Aortic Valve There is a normal trileaflet aortic valve. There is no aortic valve stenosis. There is no aortic valve regurgitation. Mitral Valve The mitral valve appears normal. There is mild mitral valve regurgitation. There is no mitral valve stenosis. Pulmonic Valve The pulmonic valve is likely normal. Tricuspid Valve There is trace tricuspid valve regurgitation. There is no evidence of pulmonary hypertension. Great Vessels The asc aorta and aortic arch are normal in size. Venous The inferior vena cava is mildly dilated and collapses greater than 50% with inspiration. Pericardium/Pleural There is a trivial pericardial effusion. Prior Study Comparison No prior study available for comparison. Recommendations, Care & Conclusions No obvious valvular pathology seen on this study. Measurements 2D Linear Measurements IVSd: 1.25 0.6-0.9/0.6-1.0 cm LVIDd: 5.07 3.9-5.3/4.2-5.9 cm LVIDd Index: 2.50 2.4-3.2/2.2-3.1 cm/m2 LVIDs: 2.74 2.0-3.6 cm LVPWd: 1.05 0.7-1.1 cm LA Diam: 3.20 2.7-3.8/3.0-4.0 cm LAIDs Index: 1.58 1.5-2.3 cm/m2 LV Mass: 280.79 67-162/88-224 g LV Mass Index: 138.32 43-95/49-115 g/m2 LVOT Diam: 2.30 3.0+(-)1.3 cm 2D Systolic Function EF 4C: 57.90 >55% EF 2C: 62.20 >55% EF BiP: 58.80 >55% Mitral Valve MV Pk E: 0.87 MV PK A: 0.49 MV Decel Time: 212.00 E/A: 1.80 E'Lateral: 13.70 E'Medial: 8.27 E/E' Med: 10.50 E/E' Lat: 6.40 PHT: 62.00 MVA PHT: 3.55 Decel [place]: 4.11 Aortic Valve AoV Pk Alo: 1.28 AoV Mn Alo: 0.89 AoV VTI: 0.27 AoV Pk Grad: 7.00 Aov Mn Grad: 3.00 AUNDREA Cont.VTI: 3.24 LVOT LVOT Pk Alo: 0.96 LVOT Mn Alo: 0.61 LVOT VTI: 0.21 LVOT Pk Grad: 4.00 LVOT Mn Grad: 2.00 LVOT Diam: 2.30 LVOT Area: 4.15 Diastolic Function MV Pk E: 0.87 MV Pk A: 0.49 E/A: 1.80 E'Medial: 8.27 E/E' Med: 10.50 E' Laterial: 13.70 E/E' Lat: 6.40 Right Ventricle TAPSE (mm): 13.90 TVS' Alo: 11.50 Tricuspid Valve TR Pk Alo: 2.17 TR Pk Grad: 19.00 RA Press: 8.00 RVSP: 27.00 Great Vessels Aorta Sinus of Valsalva: 3.13 2.0-3.[address] Ridge: 2.64 1.7-3.4 cm Ao Asc: 3.10 2.1-3.4 cm Ao Arch: 2.90 Updated in Other Vendor System with Status of Final Chester Garza MD electronically signed on 07/21/2023 9:19:53 AM with status of Final
== END ==
LOC: HO.CARD 14:40
PROVIDERS: PCP Internal Medicine; Visit Provider Internal Medicine
DX: I31.39 Other pericardial effusion (noninflammatory) (principal)
CPT/HCPCS: 93306; 93356; 99202

== ENCOUNTER 2024-09-25 21:35 | Emergency (ER) | payer OTHER, SELFPAY ==
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
[2024-09-25 21:59] VITALS: BP 118/78; PULSE 87; RESP 18; TEMP 37; O2SAT 97; BMI 31.5
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
[2024-09-26] MEDS: methocarbamoL 750 MG TABLET 1500 MG PO (02:13)
[2024-09-26 02:16] VITALS: BP 121/77; PULSE 70; RESP 16; TEMP 36.8; O2SAT 98
[2024-09-26 02:17] VITALS: BP 121/77; PULSE 70; RESP 16; TEMP 36.8; O2SAT 98
== END 2024-09-26 02:17 | disposition home or self-care (01) ==
PROVIDERS: Emergency Provider Emergency Medicine
DX: S80.02XA Contusion of left knee, initial encounter (principal); S39.012A Strain of muscle, fascia and tendon of lower back, initial encounter; V43.52XA Car driver injured in collision with other type car in traffic accident, initial encounter; Y93.89 Activity, other specified; Y92.414 Local residential or business street as the place of occurrence of the external cause; Y99.9 Unspecified external cause status
CPT/HCPCS: 73560; 99283; 99284

== ENCOUNTER → 2024-09-25 22:15 | Outpatient (BNV) | payer OTHER, SELFPAY | PROVIDERS: Visit Provider Radiology Vascular & Interventional Radiology | DX: M25.562 Pain in left knee (principal) | CPT/HCPCS: 73560 ==

== ENCOUNTER 2025-03-06 09:39 | Outpatient (REF) | payer OTHER, SELFPAY ==
--- OUTSIDE RECORDS SUMMARY | 2025-03-06 11:18 | XMS_ITS | Clinical Summary ---
Author Organization [employer] Address [address] [place] [address] Care Team Providers Care Supervisor Photoengraving Name Role Phone Sweta Sifuentes CNP Primary Care Provider [phone] Allergies Active Allergy Reactions Criticality Noted Date Comments Aspirin Swelling,Other 10/16/2019 Ketorolac 07/05/2019 Medications methocarbamol (Robaxin) 750 MG tablet TAKE 2 TABLETS BY MOUTH 2 TIMES A DAY NEEDED FOR MODERATE PAIN 5 Active buPROPion (Wellbutrin) 75 MG tablet Take 75 mg by mouth Once per day. 5 Active guanFACINE (Intuniv) 1 mg 24 hr tablet Take 1 mg by mouth Once per day. 5 025 Discontinued sertraline (Zoloft) 25 MG tablet 5 025 Discontinued Encounters Date Type Department Care Team Description 02/27/2025 2:00 PM EDT Office Visit [facility] [address] [place] [address] Sweta Sifeuntes CNP Encounter for physical examination (Primary Dx); Insomnia, unspecified type; Anxiety 02/27/2025 Travel 02/20/2025 Patient Outreach [facility] [address] [place] [address] Damian Weeks MD Pre-visit Planning (SDOH screening negative and Tobacco screening negative) 02/12/2025 Telephone [facility] [address] [place] [address] Carolyn Crum MA chart prep from Last 3 Months Immunizations Immunization Administration Dates Next Due PPD Test 07/05/2019 Social History Tobacco Use Types Packs/Day Years Used Date Smoking Tobacco: Never Passive Smoke Exposure: Never Smokeless Tobacco: Never Tobacco Cessation:Counseling Given: Not Answered Depression Answer Date Recorded Patient Health Questionnaire-9 Score 12 02/27/2025 Patient Health Questionnaire-9 Score 12 02/27/2025 Last PHQ-9: Questionnaire Data Not on file 0 02/27/2025 Housing Stability Answer Date Recorded What is your housing situation today? I have sharon cervantes 02/20/[address] you li ve. Do you have problems with any of the following? None of the above 02/20/2025 Food Insecurity Answer Date Recorded Within the past 12 months, y ou worried that your food would run out before you got money to buy more: Never True 02/20/2025 Within the past 12 months,th e food you bought just didn't last and you didn't have enough money to get more: Never True 04/2025 Transportation Answer Date Recorded In the past 12 months, has l ack of transportation kept you from medical appts, meetings, work or from getting things needed for daily living? No 02/20/2025 Utilities Answer Date Recorded In the past 12 months, has t he electric, gas, oil or water company threatened to shut off services in your home? No 02/20/2025 Depression Answer Date Recorded Patient Health Questionnaire-2 Score 4 02/27/2025 Internet Access Answer Date Recorded Internet Access Q1 Yes 02/20/2025 Internet Access Q2 Not on file 02/20/2025 Sex and Gender Information Value Date Recorded Sex Assigned at Male 02/07/2025 1:01 PM EDT Legal Sex Male 3:57 PM EDT Gender Identity Male 02/27/2025 11:06 AM EDT Sexual Orientation Don't know 02/27/2025 11 :07 AM EDT Last Filed Vital Signs Vital Sign Reading Time Taken Comments Blood Pressure 132/80 02/27/2025 1:59 PM EDT Pulse 82 02/27/2025 1:59 PM EDT Temperature 36.7 C (98.1 F) 02/27/2025 1:59 PM EDT Respiratory Rate 20 02/27/2025 1:59 PM EDT Oxygen Saturation 99% 02/27/2025 1:59 PM EDT Inhaled Oxygen Concentration - - Weight 93.9 kg (207 lb) 02/27/2025 1:59 PM EDT Height 172.7 cm (5' 8 ) 02/27/2025 1:59 PM EDT Body Mass Index 31.47 02/27/2025 1:59 PM EDT Plan of Treatment Health Maintenance Due Date Last Done Comments HIV Screening 1989 Lipid Panel 1989 Family Planning (PISQ) 2004 HPV Vaccines (1 - Male 3-dos e series) 2004 Hepatitis C Screening 11/11/2007 DTaP/Tdap/Td Vaccines (1 - Tdap) 2008 Hepatitis B Vaccines (1 of 3 - 19+ 3-dose series) 2008 Depression Monitoring 08/27/2025 02/27/2025 , 02/27/2025 Influenza Vaccine (#1) 2025 Postp oned from 02/10/2025 (Patient Refused) Alcohol/Substance Use Screening 02/27/2026 02/27/2025 COVID-19 Vaccine (1 - 2023-2 5 season) 2026 Postponed from 02/10 (Patient Refused) Disability Screening 02/27/2026 02/27/2025 SDOH Screening 02/27/2026 02/27/2025 Tobacco Screening 02/27/2026 02/27/2025 Zoster Vaccines (1 of 2) 11/11/2039 RSV Patients and Patients Aged 60 years or older (1 - 1-dose 75+ series) 2064 HIB Vaccines Aged Out No longer eligi ble based on patient's age to complete this topic Hepatitis A Vaccines Aged Out No long er eligible based on patient's age to complete this topic IPV Vaccines Aged Out No longer eligi ble based on patient's age to complete this topic Meningococcal B Vaccine Aged Out No l onger eligible based on patient's age to complete this topic Meningococcal Vaccine Aged Out No stewart elise eligible based on patient's age to complete this topic Pneumococcal Vaccine: Pediatrics (0 to 5 Years) and At-Risk Patients (6 to 49) Years Aged Out No longer eligible b ased on patient's age to complete this topic RSV under 20 months Aged Out No longe r eligible based on patient's age to complete this topic Rotavirus Vaccines Aged Out No longer eligible based on patient's age to complete this topic Procedures Procedure Name Priority Date/Time Associated Diagnosis Comments ECG 12-LEAD Routine 02/27/2025 2:48 PM EDT Encounter for physical examination from Last 3 Months Results * ECG 12 lead (02/27/2025 2:48 PM EDT) Narrative Sweta Sifuentes BIRD - 02/27/2025 2:48 PM EDT HR 63, NSR, normal pr progression, no ST segmental changes, no QR interval changes, stable ECG Santiagoreena Sifuentes CNP ECG ORDERABLES Final Res ult from Last 3 Months Insurance [facility] Care Teams Supervisor Photoengraving Relationship Specialty Start Date End Date Sweta Sifuentes CNP [address] [place] [id number] PCP - General Family Medicine 02/27/25
--- OUTSIDE RECORDS SUMMARY | 2025-03-06 11:18 | XMS_ITS | Clinical Summary ---
Author Organization [facility] Address [address] [place] [address] Care Team Providers Care Inspector Rag Sorting Name Role Phone Unavailable Primary Care Provider Unavailabl e Social History Tobacco Use Types Packs/Day Years Used Date Smoking Tobacco: Never Assessed Sex and Gender Information Value Date Recorded Sex Assigned at Not on file Legal Sex Male 2:11 AM EST Gender Identity Not on file Sexual Orientation Not on file Plan of Treatment Health Maintenance Due Date Last Done Comments DTaP,Tdap,and Td Vaccines (1 - Tdap) 2008 Hepatitis B Vaccines (1 of 3 - 19+ 3-dose series) 2008 Depression Screening 06/12/2024 COVID-19 Vaccine (1 - 2023-2 5 season) 2025 Influenza Vaccine (#1) 2025 RSV Immunization Adult Patie nts (1 - 1-dose 75+ series) 2064 HIB Vaccines Aged Out No longer eligi ble based on patient's age to complete this topic HPV Vaccines Aged Out No longer eligi ble based on patient's age to complete this topic Hepatitis A Vaccines Aged Out No long er eligible based on patient's age to complete this topic IPV Vaccines Aged Out No longer eligi ble based on patient's age to complete this topic MMR Vaccines Aged Out No longer eligi ble based on patient's age to complete this topic Meningococcal ACWY Vaccine Aged Out N o longer eligible based on patient's age to complete this topic Meningococcal B Vaccine Aged Out No l onger eligible based on patient's age to complete this topic Pneumococcal Vaccine: Pediat rics (0 to 5 Years) and At-Risk Patients (6 to 49 Years) Aged Out No longer eligible b ased on patient's age to complete this topic RSV Immunization Patients Un brandy 20 months Aged Out No longer eligible b ased on patient's age to complete this topic Varicella Vaccines Aged Out No longer eligible based on patient's age to complete this topic
--- OUTSIDE RECORDS SUMMARY | 2025-03-06 11:19 | XMS_ITS | Clinical Summary ---
Author Organization [facility] Address [address] [place] [phone] Phone Care Team Providers Care Special Events Planner Name Role Phone Unknown, Unknown Primary Care Provider Harpreet hendrix Allergies Active Allergy Reactions Criticality Noted Date Comments Aspirin 10/16/2019 Social History Tobacco Use Types Packs/Day Years Used Date Smoking Tobacco: Never Assessed Education Answer Date Recorded Are you interested in more education? Not on waldo e 10/07/2022 Are you concerned about learning? Not on file 10/07/2022 No 10/07/2022 No 10/07/2022 Digital Access Answer Date Recorded No 11/08/2022 No 11/08/2022 Reliable internet access at home? Not on file 11/08/2022 Device with a working camera? Not on file Sex and Gender Information Value Date Recorded Sex Assigned at Not on file Legal Sex Male 10:02 AM EDT Gender Identity Not on file Sexual Orientation Not on file Last Filed Vital Signs Vital Sign Reading Time Taken Comments Blood Pressure - - Pulse 100 10/16/2019 1:04 PM EDT Temperature 36.9 C (98.4 F) 10/16/2019 1:04 PM EDT Respiratory Rate - - Oxygen Saturation 99% 10/16/2019 1:04 PM EDT Inhaled Oxygen Concentration - - Weight 89.8 kg (198 lb) 10/16/2019 1:04 PM EDT Height 172.7 cm (5' 8 ) 10/16/2019 1:04 PM EDT Body Mass Index 30.11 10/16/2019 1:04 PM EDT Plan of Treatment Health Maintenance Due Date Last Done Comments Adult Td,Tdap Booster 1989 LIPID PANEL 1989 DEPRESSION SCREENING 2001 SMOKING Hx and SMOKELESS TOB ACCO SCREENING 2002 HEPATITIS C SCREENING 11/11/2007 HIV ONE-TIME SCREENING (18-6 5 YEARS) 11/11/2007 INFLUENZA VACCINE (#1) 2025 COVID-19 VACCINE (2 - 2024-2 6 season) 2025 02/17/2021 HEPATITIS A VACCINES Aged Out No long er eligible based on patient's age to complete this topic HIB VACCINES Aged Out No longer eligi ble based on patient's age to complete this topic MENINGOCOCCAL VACCINES (ACWY) Aged Out No longer eligible based on patient's age to complete this topic MENINGOCOCCAL VACCINES (B) Aged Out N o longer eligible based on patient's age to complete this topic PNEUMOCOCCAL VACCINES (0-49 years) Aged Out No longer eligible based on patient's age to complete this topic Medical Devices Not on file Insurance [employer] [facility] [address] [place] [address] [employer] [facility] CONNECTORCARE DIRECT CONNECTORCARE DIRECT CONNECTORCARE DIRECT [facility]CTOR[facility] DIRECT [facility] Care Teams Special Events Planner Relationship Specialty Start Date End Date Unknown, Unknown, PCP - General 10/16/19 Additional Source Comments The information contained in this document represents components of the legal health record. It is not the complete legal health record.[facility]
[2025-03-06 14:18] LABS: MANUAL DIFF FLAG NO
[2025-03-06 14:51] LABS: Hematocrit 43.3 % (42.0-52.0); Hemoglobin 13.8 g/dl (14.0-18.0); Imm Gran Abs Auto 0.01 X10*3/uL (0.00-0.03); Imm Gran Pct Auto 0.3 % (0.0-0.4); Lymphocytes Absolute Auto 2.0 X10*3/uL (1.2-4.9); Mean Corpuscular HGB Conc 31.9 g/dl (31.0-36.0); Mean Corpuscular Hemoglobin 27.3 pg (27.0-33.0); Mean Corpuscular Volume 85.7 fL (80.0-98.0); NRBC Abs Auto 0.000 X10*3/uL (0.0-0.012); NRBC Pct Auto 0.0 /100WBC (0.0-0.2); Platelet Count 172 X10*3/uL (160-400); Red Blood Count 5.05 X10*6/uL (4.60-5.80); White Blood Count 3.8 X10*3/uL (4.8-10.8)
[2025-03-06 15:22] LABS: Alanine Aminotransferase 21 U/L (0-40); Albumin Level 4.4 g/dL (3.5-5.0); Alkaline Phosphatase 60 U/L (39-117); Anion Gap 10 (12-20); Aspartate Amino Transferase 23 U/L (5-37); Blood Urea Nitrogen 11 mg/dL (9-16); Calcium 9.3 mg/dL (8.4-10.2); Carbon Dioxide 29 mmol/L (22-29); Chloride 105 mmol/L (96-108); Cholesterol 188 mg/dL (<200); Estimated Glomerular Filt Rate > 60; HDL Cholesterol 44 mg/dL (>40); Potassium 4.3 mmol/L (3.3-5.1); Sodium 140 mmol/L (135-145); Total Protein 7.4 g/dL (6.5-8.0); Triglycerides 171 mg/dL (<150)
[2025-03-07 08:42] LABS: HBS Num1 0.98 mIU/mL (0-7.99); HBc Num1 0.05 S/CO (0.00-0.79); HBsAGNum1 0.42 S/CO (0.00-0.99); HIV Num 1 0.06 S/CO (0.00-0.99); Hepatitis B Surface Antigen Negative (Negative); ~HepC Num1 0.08 S/CO (0.00-0.79); ~Hepatitis B Surface Antibody NONREACTIVE (Nonreactive); ~Hepatitis C Antibody Nonreactive (Nonreactive)
== END 2025-03-06 09:40 | disposition home or self-care (01) ==
LOC: HO.CHCLDS 09:39
DX: Z00.00 Encounter for general adult medical examination without abnormal findings (principal); Z13.6 Encounter for screening for cardiovascular disorders; Z11.4 Encounter for screening for human immunodeficiency virus [HIV]; Z13.0 Encounter for screening for diseases of the blood and blood-forming organs and certain disorders involving the immune mechanism; Z13.29 Encounter for screening for other suspected endocrine disorder
CPT/HCPCS: 36415; 80053; 80061; 84403; 84443; 85025; 86704; 86706; 86803; 87340; 87389